=== PATIENT | female | born 1950 | race Caucasian/White ===

== ENCOUNTER → 2018-05-08 | Day surgery (SDC) | payer MEDICARE, OTHER ==
[~2018-05-08] MED LIST: Lactated Ringers 1,000 ML IV SCH; Propofol 200 MG/20 ML SDV IV ONE
[2018-05-08 08:49] VITALS: BP 131/60
--- NOTE | 2018-05-08 13:36 | OR ---
DATE OF OPERATION: 05/08/2018 PREOPERATIVE DIAGNOSIS: POSITIVE COLOGUARD. POSTOPERATIVE DIAGNOSIS: POSITIVE COLOGUARD. SURGEON: John Knox MD PROCEDURE: FULL-LENGTH COLONOSCOPY WITH FORCEPS POLYP REMOVAL X6. ANESTHESIA: CAMPAIGN SPECIALIST. COMPLICATIONS: None. SPECIMEN: Six small sessile polyps on left-sided colon, see report. FINDINGS: 1. Full-length colonoscopy. 2. Mild sigmoid diverticulosis. 3. Polyps x6. RECOMMENDATIONS: Followup colonoscopy in 3 years. INDICATIONS: The patient had a prior colonoscopy 5 years ago. She had a positive Cologuard with her primary physician, Dr. Sherman Stearns. He sent her for diagnostic colonoscopy. DESCRIPTION OF PROCEDURE: The patient was prepped and draped, placed in the left lateral decubitus position. A lubricated Olympus colonoscope was inserted and with ease advanced to the cecum. Direct visualization of the ileocecal valve and appendiceal orifice was accomplished. The bowel prep was adequate. Upon withdrawal of the scope, the cecum, ascending and transverse colon were unremarkable. Just past the splenic flexure in the proximal descending colon, the patient had a flat sessile polyp less than 0.5 cm removed in its entirety with 2 cold forceps biopsies. The rest of the descending colon was unremarkable. In the sigmoid colon, the patient had scattered diverticular disease into the rectosigmoid junction, very mild in severity, without any inflammatory changes. In the distal sigmoid through the proximal rectal vault, the patient had 5 small sessile polyps, all likely hyperplastic, all removed with cold forceps with 1 or 2 biopsies in their entirety without any complication or bleeding. Two were present in the distal sigmoid, 2 in the rectosigmoid junction, and 1 in the proximal rectal vault. Retroflexion of the scope in the rectum showed some perianal skin tags, otherwise unremarkable. Air was then suctioned, scope removed without complication. SHIRAZ/GIULIANA /[id number]
== END ==
LOC: CC.SDS 06:29
PROVIDERS: ATTEND General Practice
DX: K57.31 Diverticulosis of large intestine without perforation or abscess with bleeding (principal); D12.4 Benign neoplasm of descending colon; D12.5 Benign neoplasm of sigmoid colon; K63.5 Polyp of colon; D12.8 Benign neoplasm of rectum; I10 Essential (primary) hypertension; E11.40 Type 2 diabetes mellitus with diabetic neuropathy, unspecified; E03.9 Hypothyroidism, unspecified; E78.00 Pure hypercholesterolemia, unspecified; G43.909 Migraine, unspecified, not intractable, without status migrainosus; J45.909 Unspecified asthma, uncomplicated; M19.90 Unspecified osteoarthritis, unspecified site; Z88.8 Allergy status to other drugs, medicaments and biological substances; Z88.1 Allergy status to other antibiotic agents; Z79.82 Long term (current) use of aspirin; Z79.4 Long term (current) use of insulin; Z79.1 Long term (current) use of non-steroidal anti-inflammatories (NSAID); Z79.899 Other long term (current) drug therapy
CPT/HCPCS: 82962; J2704; J7120

== ENCOUNTER 2020-08-27 13:52 | Emergency (ER) | payer MEDICARE, OTHER ==
[2020-08-27 13:55] VITALS: BP 170/77; PULSE 68
[2020-08-27] MEDS ORDERED: Acetaminophen/oxyCODONE 325-5 MG Tab ONE (14:39)
--- NOTE | 2020-08-27 14:42 | EDM.PDOC ---
ED HPI GENERAL MEDICAL PROBLEM - General Chief Complaint: Upper Extremity Injury/Pain Stated Complaint: R arm pain Time Seen by Provider: 08/27/20 14:11 Source of Information: Reports: Patient History Limitations: Reports: No Limitations - History of Present Illness INITIAL COMMENTS - FREE TEXT/NARRATIVE: This patient is a 70 year old female that presents to the ER. Patient reports she was trying to get into the camper, had the railing with her left hand holding on. She reports her left hand slipped and she fell back to right side landing on her right shoulder. Patient reports right upper arm pain. Patient denies hitting her head, loc, n, v, vision changes, neck pain, back pain, chest pain, shortness of breath, abd pain, urinary/bowel incontinence. Onset: Today Onset Date: 08/27/20 Onset Time: 13:30 Location: Reports: Upper Extremity, Right Quality: Reports: Sharp Severity: Moderate Improves with: Reports: Immobilization Worsens with: Reports: Movement Associated Symptoms: Reports: No Other Symptoms Right Upper Arm Pain Score (Numeric/FACES): 5 - Related Data Allergies Allergy/AdvReac Type Severity Reaction Status Date / Time Cephalosporins Allergy Rash Verified 08/27/20 13:56 formaldehyde Allergy Other Verified 08/27/20 13:56 propranolol HCl Allergy Headache Verified 08/27/20 13:56 [From Inderal LA] Home Meds: Home Meds Acetaminophen [Tylenol Extra Strength] 1,000 mg PO ASDIRECTED PRN 12/27/13 [History] Albuterol [Ventolin HFA] 2 puff INH BID PRN 12/27/13 [History] Aspirin [Halfprin] 81 mg PO BEDTIME 12/27/13 [History] Atenolol/Chlorthalidone [Atenolol-Chlorthalidone 50-25] 1 tab PO BEDTIME 12/27/13 [History] Cetirizine [ZyrTEC] 10 mg PO BEDTIME PRN 12/27/13 [History] DULoxetine HCl [Cymbalta] 30 mg PO BEDTIME 12/27/13 [History] Magnesium Oxide [Magnesium] 500 mg PO BID 12/27/13 [History] Cyclobenzaprine [Flexeril] 10 mg PO TID PRN 05/06/18 [History] EPINEPHrine [Epipen] 0.3 mg IM ASDIRECTED 05/06/18 [History] Insulin Glarg,Human.Rec.Analog [Lantus Solostar] 16 units SQ BEDTIME 05/06/18 [History] Levothyroxine [Synthroid] 50 mcg PO DAILY 05/06/18 [History] Folic Acid 1 mg PO DAILY 05/08/18 [History] Potassium Chloride [Klor-Con 10] 20 meq PO DAILY 05/08/18 [History] Rosuvastatin Calcium 5 mg PO DAILY 05/08/18 [History] Past Medical History Cardiovascular History: Reports: High Cholesterol, Hypertension Musculoskeletal History: Reports: Fibromyalgia Endocrine/Metabolic History: Reports: Diabetes, Type II, Hypothyroidism - Infectious Disease History Infectious Disease History: Reports: Chicken Pox - Past Surgical History GI Surgical History: Reports: Cholecystectomy Female Surgical History: Reports: Section Endocrine Surgical History: Reports: Other (See Below) Other Endocrine Surgeries/Procedures: 1/2 thyroid removed Neurological Surgical History: Reports: Other (See Below) Other Neurological Surgeries/Procedures: cyst removed from spine Dermatological Surgical History: Reports: Other (See Below) Social & Family History - Tobacco Use Tobacco Use Status *Q: Current Every Day Tobacco User Years of Tobacco use: 20 Packs/Tins Daily: 0.5 - Caffeine Use Caffeine Use: Reports: Coffee, Soda - Recreational Drug Use Recreational Drug Use: No Review of Systems - Review of Systems Review Of Systems: See Below Constitutional: Reports: No Symptoms Eyes: Reports: No Symptoms Ears: Reports: No Symptoms Nose: Reports: No Symptoms Mouth/Throat: Reports: No Symptoms Respiratory: Reports: No Symptoms Cardiovascular: Reports: No Symptoms GI/Abdominal: Reports: No Symptoms Genitourinary: Reports: No Symptoms Musculoskeletal: Reports: Arm Pain (right upper arm pain) Skin: Reports: Wound (small arbasion from picking sore right forearm) Neurological: Reports: No Symptoms Psychiatric: Reports: No Symptoms ED EXAM, GENERAL - Physical Exam Exam: See Below Exam Limited By: No Limitations General Appearance: Alert, WD/WN, No Apparent Distress, Obese Eye Exam: Bilateral Eye: EOMI, Normal Inspection, PERRL Ears: Normal External Exam, Normal Canal, Hearing Grossly Normal, Normal TMs Ear Exam: Bilateral Ear: Auricle Normal, Canal Normal, TM normal Nose: Normal Inspection, Normal Mucosa, No Blood Throat/Mouth: Normal Inspection, Normal Lips, Normal Teeth, Normal Gums, Normal Oropharynx, Normal Voice, No Airway Compromise Head: Atraumatic, Normocephalic Neck: Normal Inspection, Supple, Non-Tender, Full Range of Motion Respiratory/Chest: No Respiratory Distress, Lungs Clear, Normal Breath Sounds, No Accessory Muscle Use, Chest Non-Tender Cardiovascular: Normal Peripheral Pulses, Regular Rate, Rhythm, No Edema, No Gallop, No JVD, No Murmur, No Rub Peripheral Pulses: 2+: Radial (L), Radial (R), Posterior Tibial (L), Posterior Tibial (R) GI/Abdominal: Soft, Non-Tender (Female) Exam: Deferred Rectal (Female) Exam: Deferred Back Exam: Normal Inspection, Full Range of Motion. No: CVA Tenderness (L), CVA Tenderness (R), Decreased Range of Motion, Muscle Spasm, Paraspinal Tenderness, Vertebral Tenderness Extremities: No Pedal Edema, Normal Capillary Refill, Arm Pain (Right upper arm pain, tendernes. ROM decreased with patient in arm sling position. Pulses +2, cap refill < 2 sec, sensory intact. Neurovascular intact. ) Neurological: Alert, Oriented, Normal Cognition, Normal Gait, No Motor/Sensory Deficits Psychiatric: Normal Affect, Normal Mood Skin Exam: Warm, Dry, Normal Color, Rash (BLE chronic, sees dermatology upcoming), Wound/Incision (right forearm picking skin avulsion. left anterior arias picking skin avulsion from rash. ) ED TRAUMA EXTREMITY PROCEDURES - Splinting Right Upper Extremity Splint Site: right arm Pre-Procedure NV Status: Normal Post-Procedure NV Status: Normal Splint Material: Sling Splint Design: Sling Applied & Form Fitted By: Nurse Provider Post-Splint Application NV Check: NV Status Normal, Good Position Complications: No Course - Vital Signs Last Recorded V/S: Last Vital Signs Temp 98 F 08/27/20 13:53 Pulse 68 08/27/20 13:53 Resp 18 08/27/20 13:53 BP 170/77 H 08/27/20 13:53 Pulse Ox 98 08/27/20 13:53 - Orders/Labs/Meds Orders: Active Orders 24 hr Category Date Time Status Vaccines to be Administered [RC] PER UNIT ROUTINE Care 08/27/20 14:42 Ordered Humerus Rt [CR] Stat Exams 08/27/20 14:19 Taken Shoulder wo Cont Rt [CT] Stat Exams 08/27/20 14:56 Ordered Meds: Medications Discontinued Medications Generic Name Dose Route Start Last Admin Trade Name Freq PRN Reason Stop Dose Admin Diphtheria/Tetanus/Acell Pertussis 0.5 ml 08/27/20 14:42 08/27/20 14:46 Diphtheria,Pertussis(Acell),Tetanus Vaccine 0.5 Ml Syringe IM 08/27/20 14:43 0.5 ml .ONCE ONE Administration Morphine Sulfate 4 mg 08/27/20 14:57 08/27/20 15:01 Morphine 10 Mg/Ml Sdv IM 08/27/20 14:58 4 mg ONETIME ONE Administration Ondansetron HCl 4 mg 08/27/20 14:57 08/27/20 15:01 Ondansetron 4 Mg Tab.Dis PO 08/27/20 14:58 4 mg ONETIME ONE Administration Oxycodone/Acetaminophen 3 packet 08/27/20 14:58 08/27/20 15:06 Take Home: Acetaminophen/Oxycodone 325-5 Mg, 2 Tab Pack PO 08/27/20 14:59 3 packet ONETIME ONE Administration - Radiology Interpretation Free Text/Narrative:: Xray Right Humerus: Displaced humeral head fracture - Re-Assessments/Exams Free Text/Narrative Re-Assessment/Exam: 08/27/20 14:12: Patient was asked if she wanted pain medication, but she has declined. She is told to let me or nurse know if she changes her mind. 08/27/20 14:40: I called and spoke to Dr. Cleveland orthopedic [facility] about this patient. He request to get a CT right shoulder. Arm sling, discharge. He will have his clinic call patient tomorrow so he can see her either Friday or Friday and disc uss surgical options. Will discharge patient prior to CT results. The patient has now requested pain medication. Will medicate. Departure - Departure Time of Disposition: 15:03 Disposition: Home, Self-Care 01 Condition: Fair Clinical Impression: Fracture of humeral head, right, closed Qualifiers: Encounter type: initial encounter Qualified Code(s): S42.291A - Other displaced fracture of upper end of right humerus, initial encounter for closed fracture - Discharge Information *PRESCRIPTION DRUG MONITORING PROGRAM REVIEWED*: No (monitoring program is down this weekend per email sent Friday) *COPY OF PRESCRIPTION DRUG MONITORING REPORT IN PATIENT LUCIA: No Instructions: Humerus Fracture Treated With Immobilization Referrals: Sherman Stearns MD [Primary Care Provider] - Forms: ED Department Discharge Additional Instructions: Followup with Dr. Cleveland Orthopedic Surgeon at [facility]: They will call you tomorrow for appointment: If you do not hear from them, please call them at [phone]. He wants to see you either tomorrow for Friday. [facility] has your xray and ct, their radiologist reads all our images Rest Ice Elevate Arm Sling Motrin for pain as needed Percocet 5/325mg 1-2 pills every 4-6 hours as needed for pain #24 no refill, #6 take home: Please take with food Followup with your primary care provider as needed or surgical clearance if needed Sepsis Event Note (ED) - Evaluation Sepsis Screening Result: No Definite Risk - Focused Exam Vital Signs: Vital Signs Temp Pulse Resp BP Pulse Ox 08/27/20 13:53 98 F 68 18 170/77 H 98 - My Orders Last 24 Hours: My Active Orders 08/27/20 14:19 Humerus Rt [CR] Stat 08/27/20 14:42 Vaccines to be Administered [RC] PER UNIT ROUTINE 08/27/20 14:56 Shoulder wo Cont Rt [CT] Stat - Assessment/Plan Last 24 Hours: My Active Orders 08/27/20 14:19 Humerus Rt [CR] Stat 08/27/20 14:42 Vaccines to be Administered [RC] PER UNIT ROUTINE 08/27/20 14:56 Shoulder wo Cont Rt [CT] Stat Plan: PLEASE SEE RN NOTE FOR PFSH
[2020-08-27] MEDS: Diphtheria,Pertussis(Acell),Tetanus Vaccine 0.5 ML Syringe IM ONE (14:46)
[2020-08-27] MEDS: Morphine 10 MG/ML SDV IM ONE (15:01)
[2020-08-27] MEDS: Ondansetron 4 MG Tab.DIS PO ONE (15:01)
[2020-08-27] MEDS: Take Home: Acetaminophen/oxyCODONE 325-5 MG, 2 Tab Pack PO ONE (15:06)
== END 2020-08-27 15:23 | disposition home or self-care (01) ==
LOC: CC.ED 13:52
DX: S42.291A Other displaced fracture of upper end of right humerus, initial encounter for closed fracture (principal); Z72.0 Tobacco use; E78.00 Pure hypercholesterolemia, unspecified; I10 Essential (primary) hypertension; E11.9 Type 2 diabetes mellitus without complications; E03.9 Hypothyroidism, unspecified; Z23 Encounter for immunization; W18.39XA Other fall on same level, initial encounter
CPT/HCPCS: 73060-RT; 73200-RT; 90471; 90715; 96372; 99283-25; A9270-GY; J2270

== ENCOUNTER 2020-09-02 08:45 | Emergency (ER) | payer MEDICARE, OTHER ==
[2020-09-02 09:15] VITALS: BP 123/62; PULSE 69
[2020-09-02 09:32] LABS: CHLORIDE,CL 99 mEq/L (98-106); SODIUM,NA 133 mEq/L (136-145)
[2020-09-02] MEDS ORDERED: Sodium Chloride 0.9% 1,000 ML IV SCH (10:00)
--- NOTE | 2020-09-02 11:14 | EDM.PDOC ---
ED HPI GENERAL MEDICAL PROBLEM - General Chief Complaint: General Stated Complaint: s/p R humerus fx-BLE edema, blisters to area Time Seen by Provider: 09/02/20 09:20 Source of Information: Reports: Patient, Family History Limitations: Reports: No Limitations - History of Present Illness INITIAL COMMENTS - FREE TEXT/NARRATIVE: Roxane is a 70 year old female who presents to ER with increased edema in her legs and arm. Has had blisters form on her right arm and daughter questions if related to an allergy to her immobilizer. She has "sensitive skin and a lot of allergies and has had blisters forming where it could rub on the brace". She has an ongoing rash all over that she sees dermatology for and feel it is related to polymyalgia rheumatica". Had a humerus fracture on the , had surgery on this by Dr. Cleveland on the . Admits that has not been as active since surgery. Daughter kristal has been in the recliner but last night they did elevate her legs more and that seemed to help some with the edema. Has been trying to drink more fluids the last couple days. Does believe she didn't get enough around the surgical date. Has been only taking tylenol arthritis for the pain. Has not had a BM for some time. She took dulcolax twice yesterday and feels "crampy so think it may be starting to work". Is currently on Atenolol/HCTZ but does not take any other diuretics. On a baby aspirin daily, no other DVT prophylaxis. Daughter relates have been trying to encourage her to be more active, "gets up mostly to smoke". Is planning on quitting when this pack runs out. Onset: Gradual Duration: Day(s): Location: Reports: Upper Extremity, Right, Lower Extremity, Left, Lower Extremity, Right Quality: Reports: Ache Severity: Moderate Improves with: Reports: Rest Worsens with: Reports: Movement Associated Symptoms: Reports: Malaise. 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 Right Arm Pain Score (Numeric/FACES): 8 - Related Data Allergies Allergy/AdvReac Type Severity Reaction Status Date / Time acetaminophen [From Lortab] Allergy Vomiting Verified 09/02/20 09:22 Cephalosporins Allergy Rash Verified 09/02/20 09:22 formaldehyde Allergy Other Verified 09/02/20 09:22 hydrocodone [From Lortab] Allergy Vomiting Verified 09/02/20 09:22 propranolol HCl Allergy Headache Verified 09/02/20 09:22 [From Inderal LA] Home Meds: Home Meds Albuterol [Ventolin HFA] 2 puff INH BID PRN 12/27/13 [History] Aspirin [Halfprin] 81 mg PO BEDTIME 12/27/13 [History] Atenolol/Chlorthalidone [Atenolol-Chlorthalidone 50-25] 1 tab PO BEDTIME 12/27/13 [History] Cetirizine [ZyrTEC] 10 mg PO BEDTIME PRN 12/27/13 [History] DULoxetine HCl [Cymbalta] 30 mg PO BEDTIME 12/27/13 [History] Magnesium Oxide [Magnesium] 500 mg PO BID 12/27/13 [History] Cyclobenzaprine [Flexeril] 10 mg PO TID PRN 05/06/18 [History] EPINEPHrine [Epipen] 0.3 mg IM ASDIRECTED 05/06/18 [History] Insulin Glarg,Human.Rec.Analog [Lantus Solostar] 22 units SQ BEDTIME 05/06/18 [History] Levothyroxine [Synthroid] 50 mcg PO DAILY 05/06/18 [History] Folic Acid 1 mg PO DAILY 05/08/18 [History] Potassium Chloride [Klor-Con 10] 20 meq PO DAILY 05/08/18 [History] Rosuvastatin Calcium 5 mg PO DAILY 05/08/18 [History] Acetaminophen [Tylenol Arthritis] 1,300 mg PO ASDIRECTED PRN 09/02/20 [History] Past Medical History Cardiovascular History: Reports: High Cholesterol, Hypertension Respiratory History: Reports: Asthma 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: Musculoskeletal History: Reports: Arthritis, Fibromyalgia Neurological History: Reports: Migraines Psychiatric History: Reports: Anxiety Endocrine/Metabolic History: Reports: Diabetes, Type II, Hypothyroidism Dermatologic History: Reports: Other (See Below) Other Dermatologic History: rash to BLE - Infectious Disease History Infectious Disease History: Reports: Chicken Pox, Measles, Mumps - Past Surgical History GI Surgical History: Reports: Cholecystectomy Female Surgical History: Reports: Section, Hysterectomy Endocrine Surgical History: Reports: Other (See Below) Other Endocrine Surgeries/Procedures: 1/2 thyroid removed Neurological Surgical History: Reports: Other (See Below) Other Neurological Surgeries/Procedures: cyst removed from spine Other Musculoskeletal Surgeries/Procedures:: R) humerus fx surgery 08/30/20 Dermatological Surgical History: Reports: Other (See Below) Social & Family History - Tobacco Use Tobacco Use Status *Q: Current Every Day Tobacco User Years of Tobacco use: 20 Packs/Tins Daily: 0.5 - Caffeine Use Caffeine Use: Reports: Coffee - Recreational Drug Use Recreational Drug Use: No ED ROS GENERAL - Review of Systems Review Of Systems: See Below Constitutional: Reports: Malaise, Fatigue. Denies: Chills, Weakness, Decreased Appetite HEENT: Denies: Ear Pain, Sinus Problem, Throat Pain, Vertigo Respiratory: Denies: Shortness of Breath, Cough Cardiovascular: Reports: Edema. Denies: Chest Pain, Lightheadedness Endocrine: Denies: Fatigue GI/Abdominal: Reports: Constipation. Denies: Abdominal Pain, Nausea, Vomiting : Reports: No Symptoms Musculoskeletal: Reports: Arm Pain, Leg Pain, Joint Pain Skin: Reports: Bruising, Other (blisters noted to right forearm) Neurological: Reports: No Symptoms ED EXAM, GENERAL - Physical Exam Exam: See Below Exam Limited By: No Limitations General Appearance: Alert, WD/WN, No Apparent Distress Ears: Normal External Exam, Normal TMs Nose: Normal Inspection, Normal Mucosa, No Blood Throat/Mouth: Normal Inspection, Normal Oropharynx Head: Normocephalic Neck: Normal Inspection, Supple, Non-Tender Respiratory/Chest: No Respiratory Distress, Lungs Clear, Normal Breath Sounds Cardiovascular: Regular Rate, Rhythm GI/Abdominal: Normal Bowel Sounds, Soft, Non-Tender Extremities: Pedal Edema (2+ RLE edema, 1+ LLE), Other (has scabs, sores, rash on lower extremities. Small blisters to right forearm. Significant bruising to right arm, chest/breasts. ) Neurological: Alert, Oriented Skin Exam: Ecchymosis Course - Vital Signs Last Recorded V/S: Last Vital Signs Temp 97.8 F 09/02/20 10:38 Pulse 69 09/02/20 10:38 Resp 18 09/02/20 10:38 BP 123/62 09/02/20 10:38 Pulse Ox 99 09/02/20 10:38 - Orders/Labs/Meds Orders: Active Orders 24 hr Category Date Time Status VL Duplex Lwr Ext Veins Ltd Lt [US] Routine Exams 09/02/20 Taken VL Duplex Lwr Ext Veins Ltd Rt [US] Routine Exams 09/02/20 Ordered Sodium Chloride 0.9% [Normal Saline] 1,000 ml Med 09/02/20 10:00 Active IV ASDIRECTED Medication Orders Sodium Chloride (Normal Saline) 1,000 mls @ 250 mls/hr IV ASDIRECTED KEARA Last Admin: 09/02/20 10:07 Dose: 250 mls/hr Documented by: CATHIE Labs: Laboratory Tests 09/02/20 09/02/20 09/02/20 Range/Units 09:12 09:12 09:12 WBC 18.9 H (4.0-11.0) 10^3/uL RBC 2.48 L (4.00-5.50) x10^6/uL Hgb 8.2 L (12.0-16.0) g/dL Hct 25.4 L (37.0-47.0) % MCV 102.4 H (83.0-97.0) fL MCH 33.1 H (27.0-32.0) pg MCHC 32.3 (32.0-36.0) g/dL RDW Coeff of Kayy 15.4 H (11.0-15.0) % Plt Count 142 L (150-400) 10^3/uL Immature Gran % (Auto) 0.6 (0.0-4.9) % Neut % (Auto) 80.2 H (41-71) % Lymph % (Auto) 12.4 L (24-44) % King % (Auto) 6.4 (0-10) % Eos % (Auto) 0.3 (0-6) % Baso % (Auto) 0.1 (0-1) % Neut # (Auto) 15.19 H (1.80-8.00) x10^3/uL Lymph # (Auto) 2.34 (0.60-5.00) 10^3/uL King # (Auto) 1.21 (0.00-1.50) 10^3/uL Eos # (Auto) 0.05 (0.00-1.50) 10^3/uL Baso # (Auto) 0.01 (0.00-0.50) 10^3/uL Immature Gran # (Auto) 0.11 (0.00-0.49) 10^3/uL D-Dimer, Quantitative 4.10 H (0.00-0.50) Sodium 133 L (136-145) mEq/L Potassium 4.2 (3.5-5.0) mEq/L Chloride 99 (98-106) mEq/L Carbon Dioxide 25 (21-32) mmol/L BUN 69 H D (7-18) mg/dL Creatinine 2.1 H (0.6-1.0) mg/dL Est Cr Clr Drug Dosing TNP Estimated GFR (MDRD) 23 L (>=60) mL/min Glucose 267 H D (75-99) mg/dL Calcium 8.5 (8.4-10.1) mg/dL NT-Pro-B Natriuret Pep 2590 H (0-1000) pg/mL Meds: Medications Generic Name Dose Route Start Last Admin Trade Name Marvin PRN Reason Stop Dose Admin Sodium Chloride 1,000 mls @ 250 mls/hr 09/02/20 10:00 09/02/20 10:07 Normal Saline IV 250 mls/hr ASDIRECTED [facility] Administration - Re-Assessments/Exams Free Text/Narrative Re-Assessment/Exam: 09/02/20 1000 Labs note elevated d-dimer at 4.1. Creatinine 2.1, BUN. ProBNP 2590. No recent labs here for comparison. Will obtain ultrasound of lower extremities. Start IV fluids over the next 4 hours and start Lasix after for fluid overload. 09/02/20 12:22 Placed stockinette on right arm, hopefully prevent further irritation from the immobilizer. Discussed follow up with patient with Dr. Stearns early next week for recheck labs. Will finish IV fluids. Start Lasix daily for 3 days and then see Dr. Stearns as is also on Atenolol/HCTZ. Elevate legs. Increase activity as able. Departure - Departure Time of Disposition: 12:24 Disposition: Home, Self-Care 01 Condition: Good, Fair Clinical Impression: Edema, Dehydration, Renal insufficiency, CHF (congestive heart failure) - Discharge Information *PRESCRIPTION DRUG MONITORING PROGRAM REVIEWED*: No *COPY OF PRESCRIPTION DRUG MONITORING REPORT IN PATIENT LUCIA: No Instructions: Dehydration, Adult, [id number] Referrals: Sherman Steanrs MD [Primary Care Provider] - Forms: ED Department Discharge Additional Instructions: 1. Elevate legs 2. Push fluids 3. Lasix 40 mg daily for 3 days and then see Dr. Stearns for repeat labs and follow up. May need echocardiogram as well. 4. Call with any concerns Sepsis Event Note (ED) - Evaluation Sepsis Screening Result: No Definite Risk - Focused Exam Vital Signs: Vital Signs Temp Pulse Resp BP Pulse Ox 09/02/20 10:38 97.8 F 69 18 123/62 99 09/02/20 09:03 97.8 F 69 18 123/62 99 - My Orders Last 24 Hours: My Active Orders 09/02/20 VL Duplex Lwr Ext Veins Ltd Lt [US] Routine VL Duplex Lwr Ext Veins Ltd Rt [US] Routine 09/02/20 10:00 Sodium Chloride 0.9% [Normal Saline] 1,000 ml IV ASDIRECTED - Assessment/Plan Last 24 Hours: My Active Orders 09/02/20 VL Duplex Lwr Ext Veins Ltd Lt [US] Routine VL Duplex Lwr Ext Veins Ltd Rt [US] Routine 09/02/20 10:00 Sodium Chloride 0.9% [Normal Saline] 1,000 ml IV ASDIRECTED
[2020-09-02] MEDS ORDERED: Furosemide 40 MG Tab ONE (12:45)
[2020-09-02] MEDS ORDERED: Furosemide 40 MG Tab PO SCH (12:45)
== END 2020-09-02 14:45 | disposition home or self-care (01) ==
LOC: CC.ED 08:45 → SUPCPDRO 08:45 → CC.ED 14:45
DX: R60.0 Localized edema (principal); I13.0 Hypertensive heart and chronic kidney disease with heart failure and stage 1 through stage 4 chronic kidney disease, or unspecified chronic kidney disease; E11.22 Type 2 diabetes mellitus with diabetic chronic kidney disease; N18.9 Chronic kidney disease, unspecified; I50.9 Heart failure, unspecified; E86.0 Dehydration; E78.00 Pure hypercholesterolemia, unspecified; Z88.5 Allergy status to narcotic agent; Z88.6 Allergy status to analgesic agent; Z88.1 Allergy status to other antibiotic agents; Z79.899 Other long term (current) drug therapy; Z79.82 Long term (current) use of aspirin; Z72.0 Tobacco use
CPT/HCPCS: 36415; 80048; 83880; 85025; 85379; 93971; 99284; A9270; J7030

== ENCOUNTER 2022-06-30 13:54 | Emergency (ER) | payer MEDICARE, OTHER ==
[2022-06-30 14:34] LABS: CHLORIDE,CL 110 mEq/L (98-106); SODIUM,NA 143 mEq/L (136-145)
[2022-06-30 14:35] LABS: ESTIMATED GFR 34 mL/min (>=60)
[2022-06-30] MEDS ORDERED: Ondansetron 4 MG/2 ML SDV IVPUSH STA (15:20)
[2022-06-30] MEDS ORDERED: Morphine 2 MG/ML SYRINGE IVPUSH PRN (15:23)
[2022-06-30] MEDS ORDERED: Sodium Chloride 0.9% 500 ML IV SCH (15:30)
[2022-06-30] MEDS ORDERED: Piperacillin/Tazobactam 4.5 GM in Sodium Chloride 0.9% 100 ML IV ONE (16:06)
[2022-06-30 16:37] VITALS: BP 159/72; PULSE 84
== END 2022-06-30 17:20 ==
LOC: CC.ED 13:54
DX: K74.69 Other cirrhosis of liver (principal); E87.20 Acidosis, unspecified; R18.8 Other ascites; D72.829 Elevated white blood cell count, unspecified; E03.9 Hypothyroidism, unspecified; J45.909 Unspecified asthma, uncomplicated; E78.00 Pure hypercholesterolemia, unspecified; Z88.5 Allergy status to narcotic agent; E11.9 Type 2 diabetes mellitus without complications; I10 Essential (primary) hypertension; Z79.82 Long term (current) use of aspirin; Z88.8 Allergy status to other drugs, medicaments and biological substances; Z79.899 Other long term (current) drug therapy
CPT/HCPCS: 36415; 74176; 80053; 81003; 83605; 83690; 85025; 86140; 87040; 96361; 96365; 96375; 99284; 99285-25; J2270; J2405; J2543; J3490; J7040

== ENCOUNTER 2022-07-26 13:05 | Inpatient (IN) | payer MEDICARE, OTHER ==
[2022-07-26 13:36] LABS: BASOPHILS ABSOLUTE AUTO 0.03 10^3/uL (0.00-0.50); BASOPHILS PERCENT AUTO 0.3 % (0-1); EOSINOPHILS PERCENT AUTO 0.9 % (0-6); HEMATOCRIT 28.7 % (37.0-47.0); HEMOGLOBIN 9.1 g/dL (12.0-16.0); IMMATURE GRAN ABSOLUTE AUTO 0.02 10^3/uL (0.00-0.49); IMMATURE GRAN PERCENT AUTO 0.2 % (0.0-4.9); LYMPHOCYTES ABSOLUTE AUTO 1.09 10^3/uL (0.60-5.00); LYMPHOCYTES PERCENT AUTO 9.6 % (24-44); MEAN CORPUSCULAR HEMOGLOBIN 31.5 pg (27.0-32.0); MEAN CORPUSCULAR HGB CONC 31.7 g/dL (32.0-36.0); MEAN CORPUSCULAR VOLUME 99.3 fL (83.0-97.0); MONOCYTES ABSOLUTE AUTO 0.52 10^3/uL (0.00-1.50); MONOCYTES PERCENT AUTO 4.6 % (0-10); NEUTROPHILS ABSOLUTE AUTO 9.57 x10^3/uL (1.80-8.00); NEUTROPHILS PERCENT AUTO 84.4 % (41-71); PLATELET COUNT,PLT 147 10^3/uL (150-400); RED BLOOD CELL COUNT 2.89 x10^6/uL (4.00-5.50); WHITE BLOOD CELL COUNT,WBC 11.3 10^3/uL (4.0-11.0)
[2022-07-26 13:45] LABS: APPEARANCE,URINE CLEAR (CLEAR); BILIRUBIN,URINE NEGATIVE (NEGATIVE); COLOR,URINE YELLOW (YELLOW); GLUCOSE,URINE NEGATIVE (NEGATIVE); KETONES,URINE NEGATIVE (NEGATIVE); LEUKOCYTE ESTERASE,URINE NEGATIVE (NEGATIVE); NITRITE,URINE NEGATIVE (NEGATIVE); OCCULT BLOOD,URINE NEGATIVE (NEGATIVE); PROTEIN,URINE NEGATIVE (NEGATIVE); UROBILINOGEN,URINE 0.2 EU/dL (0.2-1.0)
[2022-07-26 13:48] LABS: ALBUMIN 2.7 g/dL (3.4-5.0); BILIRUBIN TOTAL 0.9 mg/dL (0.0-1.0); CALCIUM 9.1 mg/dL (8.4-10.1); EST CRCL DRUG DOSING (CG) 23.8 mL/min; MAGNESIUM 1.8 mg/dL (1.8-2.4); PROTEIN TOTAL,TP 6.9 g/dL (6.4-8.2)
[2022-07-26] MEDS ORDERED: Albuterol 90 MCG/6.7 GM Inhaler INH PRN (15:00)
[2022-07-26] MEDS ORDERED: Non-Formulary Medication 1 Each (Epinephrine [Epipen] 0.3 MG/0.3 ML Pen) IM SCH (15:00)
[2022-07-26] MEDS ORDERED: Docusate Sodium 100 MG Cap PO PRN (15:06)
[2022-07-26] MEDS ORDERED: Morphine 2 MG/ML SYRINGE IVPUSH PRN (15:06)
[2022-07-26] MEDS ORDERED: Ondansetron 4 MG/2 ML SDV IV PRN (15:06)
[2022-07-26] MEDS ORDERED: Sodium Chloride 0.9% 1,000 ML IV STA (15:06)
[2022-07-26] MEDS ORDERED: Polyethylene Glycol 3350 Powder 17 GM Packet PO PRN (15:06)
[2022-07-26] MEDS ORDERED: Glucagon,Human Recombinant 1 MG Vial IM PRN (17:15)
[2022-07-26] MEDS ORDERED: 50% Dextrose in Water 50 ML Syringe IVPUSH PRN (17:15)
[2022-07-26] MEDS ORDERED: Insulin Lispro 100 Units/ML 3 ML Vial SUBCUT SCH (17:30)
[2022-07-26] MEDS: Sodium Bicarbonate 650 MG Tab PO SCH (19:56)
[2022-07-26] MEDS: DULoxetine 30 MG Cap PO SCH (19:56)
[2022-07-26] MEDS ORDERED: Non-Formulary Medication 1 Each (Insulin Glarg,Human.Rec.Analog 100 UNITS/ML Pen) SQ SCH (20:00)
[2022-07-26] MEDS ORDERED: Non-Formulary Medication 1 Each (Magnesium Oxide [Magnesium] 500 MG Capsule) PO SCH (20:00)
[2022-07-26] MEDS ORDERED: METOCLOPRAMIDE HCL 5 MG PO SCH (20:00)
[2022-07-26] MEDS: Metoclopramide 10 MG Tab PO SCH (20:04)
[2022-07-26] MEDS: Insulin Glarg,Human.Rec.Analog 100 Unit/ML SUBCUT SCH (20:15)
[2022-07-26] MEDS: Insulin Lispro 100 Units/ML 3 ML Vial SUBCUT SCH (20:52)
[2022-07-27 07:25] LABS: BASOPHILS ABSOLUTE AUTO 0.03 10^3/uL (0.00-0.50); BASOPHILS PERCENT AUTO 0.3 % (0-1); EOSINOPHILS ABSOLUTE AUTO 0.12 10^3/uL (0.00-1.50); EOSINOPHILS PERCENT AUTO 1.2 % (0-6); HEMATOCRIT 26.3 % (37.0-47.0); HEMOGLOBIN 8.4 g/dL (12.0-16.0); IMMATURE GRAN ABSOLUTE AUTO 0.01 10^3/uL (0.00-0.49); IMMATURE GRAN PERCENT AUTO 0.1 % (0.0-4.9); LYMPHOCYTES ABSOLUTE AUTO 1.99 10^3/uL (0.60-5.00); LYMPHOCYTES PERCENT AUTO 19.7 % (24-44); MEAN CORPUSCULAR HEMOGLOBIN 31.7 pg (27.0-32.0); MEAN CORPUSCULAR HGB CONC 31.9 g/dL (32.0-36.0); MEAN CORPUSCULAR VOLUME 99.2 fL (83.0-97.0); MONOCYTES ABSOLUTE AUTO 0.71 10^3/uL (0.00-1.50); NEUTROPHILS ABSOLUTE AUTO 7.25 x10^3/uL (1.80-8.00); NEUTROPHILS PERCENT AUTO 71.7 % (41-71); PLATELET COUNT,PLT 128 10^3/uL (150-400); RED BLOOD CELL COUNT 2.65 x10^6/uL (4.00-5.50); WHITE BLOOD CELL COUNT,WBC 10.1 10^3/uL (4.0-11.0)
[2022-07-27] MEDS: Sodium Bicarbonate 650 MG Tab PO SCH ×2 (07:31→19:44)
[2022-07-27] MEDS: Atenolol 50 MG Tab PO SCH (07:31)
[2022-07-27] MEDS: Levothyroxine 50 MCG Tab PO SCH (07:32)
[2022-07-27] MEDS: Torsemide 20 MG Tab PO SCH (07:32)
[2022-07-27] MEDS: Metoclopramide 10 MG Tab PO SCH ×3 (07:32→19:44)
[2022-07-27] MEDS: Potassium Chloride 10 MEQ Tab.ER PO SCH (07:32)
[2022-07-27] MEDS: Folic Acid 1 MG Tab PO SCH (07:32)
[2022-07-27] MEDS: Simvastatin 20 MG Tab PO SCH (07:32)
[2022-07-27] MEDS: Non-Formulary Medication 1 Each (Biotin [Biotin] 1 MG Tablet) PO SCH (07:35)
[2022-07-27] MEDS: Insulin Lispro 100 Units/ML 3 ML Vial SUBCUT SCH ×4 (07:36→20:57)
[2022-07-27] MEDS ORDERED: predniSONE 5 MG Tab PO SCH (08:00)
[2022-07-27 08:07] LABS: ALBUMIN 2.3 g/dL (3.4-5.0); BILIRUBIN TOTAL 0.6 mg/dL (0.0-1.0); CALCIUM 8.8 mg/dL (8.4-10.1); CREATININE 1.6 mg/dL (0.6-1.0); EST CRCL DRUG DOSING (CG) 29.75 mL/min; MAGNESIUM 2.1 mg/dL (1.8-2.4); POTASSIUM,K 3.7 mEq/L (3.5-5.0); PROTEIN TOTAL,TP 6.4 g/dL (6.4-8.2)
[2022-07-27] MEDS ORDERED: Furosemide 40 MG/4 ML VIAL IVPUSH ONE ×3 (11:22→16:00)
[2022-07-27] MEDS ORDERED: Albumin 25% 12.5 GM/50 ML Bag IV SCH (11:30)
[2022-07-27] MEDS ORDERED: Albumin 25% 12.5 GM/50 ML Bag IV ONE (12:30)
[2022-07-27] MEDS: DULoxetine 30 MG Cap PO SCH (19:44)
[2022-07-27] MEDS: Insulin Glarg,Human.Rec.Analog 100 Unit/ML SUBCUT SCH (19:47)
[2022-07-28 07:25] LABS: BASOPHILS ABSOLUTE AUTO 0.04 10^3/uL (0.00-0.50); BASOPHILS PERCENT AUTO 0.5 % (0-1); EOSINOPHILS ABSOLUTE AUTO 0.19 10^3/uL (0.00-1.50); EOSINOPHILS PERCENT AUTO 2.3 % (0-6); HEMATOCRIT 25.1 % (37.0-47.0); HEMOGLOBIN 8.1 g/dL (12.0-16.0); IMMATURE GRAN ABSOLUTE AUTO 0.02 10^3/uL (0.00-0.49); IMMATURE GRAN PERCENT AUTO 0.2 % (0.0-4.9); LYMPHOCYTES ABSOLUTE AUTO 1.54 10^3/uL (0.60-5.00); MEAN CORPUSCULAR HGB CONC 32.3 g/dL (32.0-36.0); MEAN CORPUSCULAR VOLUME 99.2 fL (83.0-97.0); MONOCYTES ABSOLUTE AUTO 0.64 10^3/uL (0.00-1.50); MONOCYTES PERCENT AUTO 7.9 % (0-10); NEUTROPHILS ABSOLUTE AUTO 5.66 x10^3/uL (1.80-8.00); NEUTROPHILS PERCENT AUTO 70.1 % (41-71); PLATELET COUNT,PLT 105 10^3/uL (150-400); RED BLOOD CELL COUNT 2.53 x10^6/uL (4.00-5.50); WHITE BLOOD CELL COUNT,WBC 8.1 10^3/uL (4.0-11.0)
[2022-07-28] MEDS: Metoclopramide 10 MG Tab PO SCH ×3 (07:28→19:51)
[2022-07-28] MEDS: Non-Formulary Medication 1 Each (Biotin [Biotin] 1 MG Tablet) PO SCH (07:28)
[2022-07-28] MEDS: Torsemide 20 MG Tab PO SCH (07:29)
[2022-07-28] MEDS: Potassium Chloride 10 MEQ Tab.ER PO SCH (07:29)
[2022-07-28] MEDS: Sodium Bicarbonate 650 MG Tab PO SCH ×2 (07:29→19:51)
[2022-07-28] MEDS: Simvastatin 20 MG Tab PO SCH (07:29)
[2022-07-28] MEDS: Folic Acid 1 MG Tab PO SCH (07:29)
[2022-07-28] MEDS: Atenolol 50 MG Tab PO SCH (07:29)
[2022-07-28] MEDS: Levothyroxine 50 MCG Tab PO SCH (07:29)
[2022-07-28] MEDS: predniSONE 5 MG Tab PO SCH (07:29)
[2022-07-28] MEDS: Insulin Lispro 100 Units/ML 3 ML Vial SUBCUT SCH ×4 (07:30→20:46)
[2022-07-28 07:50] LABS: ALBUMIN 2.6 g/dL (3.4-5.0); BILIRUBIN TOTAL 0.7 mg/dL (0.0-1.0); CALCIUM 8.6 mg/dL (8.4-10.1); CREATININE 1.6 mg/dL (0.6-1.0); EST CRCL DRUG DOSING (CG) 29.75 mL/min; MAGNESIUM 1.9 mg/dL (1.8-2.4); PROTEIN TOTAL,TP 6.3 g/dL (6.4-8.2)
[2022-07-28] MEDS: DULoxetine 30 MG Cap PO SCH (19:51)
[2022-07-28] MEDS: Insulin Glarg,Human.Rec.Analog 100 Unit/ML SUBCUT SCH (19:54)
[2022-07-29] MEDS: Levothyroxine 50 MCG Tab PO SCH (07:39)
[2022-07-29] MEDS: Folic Acid 1 MG Tab PO SCH (07:39)
[2022-07-29] MEDS: predniSONE 5 MG Tab PO SCH (07:39)
[2022-07-29] MEDS: Potassium Chloride 10 MEQ Tab.ER PO SCH (07:39)
[2022-07-29] MEDS: Simvastatin 20 MG Tab PO SCH (07:40)
[2022-07-29] MEDS: Sodium Bicarbonate 650 MG Tab PO SCH (07:40)
[2022-07-29] MEDS: Metoclopramide 10 MG Tab PO SCH (07:40)
[2022-07-29] MEDS: Atenolol 50 MG Tab PO SCH (07:40)
[2022-07-29] MEDS: Torsemide 20 MG Tab PO SCH (07:40)
[2022-07-29] MEDS: Non-Formulary Medication 1 Each (Biotin [Biotin] 1 MG Tablet) PO SCH (07:54)
[2022-07-29] MEDS: Insulin Lispro 100 Units/ML 3 ML Vial SUBCUT SCH ×2 (07:55→12:01)
[2022-07-29] MEDS ORDERED: Albumin 25% 12.5 GM/50 ML Bag IV ONE (10:00)
[2022-07-29] MEDS ORDERED: Albumin 25% 25 GM in Premix Bag 1 BAG IV ONE (10:00)
[2022-07-29 12:24] VITALS: BP 111/55; PULSE 70
== END 2022-07-29 13:21 | disposition home or self-care (01) | DRG 433 ==
LOC: CC.ED 13:05 → UNDOADMIN 14:17 → CC.MS 14:17
PROVIDERS: ADMIT Nurse Practitioner; ATTEND Nurse Practitioner
PROC: 0W9G3ZZ Drainage of Peritoneal Cavity, Percutaneous Approach (ICD-10-PCS; principal; 2022-07-29)
DX: K74.60 Unspecified cirrhosis of liver (principal); N17.9 Acute kidney failure, unspecified; R18.8 Other ascites; D69.6 Thrombocytopenia, unspecified; I12.9 Hypertensive chronic kidney disease with stage 1 through stage 4 chronic kidney disease, or unspecified chronic kidney disease; E11.22 Type 2 diabetes mellitus with diabetic chronic kidney disease; N18.30 Chronic kidney disease, stage 3 unspecified; M19.90 Unspecified osteoarthritis, unspecified site; E03.9 Hypothyroidism, unspecified; J45.909 Unspecified asthma, uncomplicated; G43.909 Migraine, unspecified, not intractable, without status migrainosus; M79.7 Fibromyalgia; E78.00 Pure hypercholesterolemia, unspecified; Z90.49 Acquired absence of other specified parts of digestive tract; Z88.8 Allergy status to other drugs, medicaments and biological substances; Z88.5 Allergy status to narcotic agent; Z90.710 Acquired absence of both cervix and uterus; Z98.890 Other specified postprocedural states; Z79.899 Other long term (current) drug therapy
CPT/HCPCS: 36415; 49083; 80053; 81003; 82947; 83690; 83735; 85025; 85730; 87070; 96360; 96361; 99223; 99232; 99233; 99238; 99284-25; A9270-GY; J1815-GY; J1940; J2270; J7030; J7512; P9047

== ENCOUNTER 2022-10-07 14:30 | Emergency (ER) | payer MEDICARE, OTHER ==
[2022-10-07 14:47] VITALS: BP 113/57; PULSE 64
[2022-10-07 15:32] LABS: BASOPHILS ABSOLUTE AUTO 0.08 10^3/uL (0.00-0.50); BASOPHILS PERCENT AUTO 1.1 % (0-1); EOSINOPHILS ABSOLUTE AUTO 0.49 10^3/uL (0.00-1.50); HEMATOCRIT 27.1 % (37.0-47.0); HEMOGLOBIN 8.6 g/dL (12.0-16.0); IMMATURE GRAN ABSOLUTE AUTO 0.01 10^3/uL (0.00-0.49); IMMATURE GRAN PERCENT AUTO 0.1 % (0.0-4.9); LYMPHOCYTES ABSOLUTE AUTO 1.05 10^3/uL (0.60-5.00); LYMPHOCYTES PERCENT AUTO 14.9 % (24-44); MEAN CORPUSCULAR HEMOGLOBIN 31.5 pg (27.0-32.0); MEAN CORPUSCULAR HGB CONC 31.7 g/dL (32.0-36.0); MEAN CORPUSCULAR VOLUME 99.3 fL (83.0-97.0); MONOCYTES ABSOLUTE AUTO 0.72 10^3/uL (0.00-1.50); MONOCYTES PERCENT AUTO 10.2 % (0-10); NEUTROPHILS ABSOLUTE AUTO 4.68 x10^3/uL (1.80-8.00); NEUTROPHILS PERCENT AUTO 66.7 % (41-71); PLATELET COUNT,PLT 127 10^3/uL (150-400); RED BLOOD CELL COUNT 2.73 x10^6/uL (4.00-5.50)
[2022-10-07 15:43] LABS: BILIRUBIN TOTAL 0.7 mg/dL (0.0-1.0); C-REACTIVE PROTEIN 1.62 mg/dL (<=0.30); CALCIUM 8.7 mg/dL (8.4-10.1); CREATININE 1.5 mg/dL (0.6-1.0); EST CRCL DRUG DOSING (CG) 31.74 mL/min; POTASSIUM,K 4.3 mEq/L (3.5-5.0); PROTEIN TOTAL,TP 6.3 g/dL (6.4-8.2)
== END 2022-10-07 16:33 | disposition home or self-care (01) ==
LOC: CC.ED 14:30
DX: R18.8 Other ascites (principal); E78.00 Pure hypercholesterolemia, unspecified; I10 Essential (primary) hypertension; E11.9 Type 2 diabetes mellitus without complications; E03.9 Hypothyroidism, unspecified; J45.909 Unspecified asthma, uncomplicated; Z88.1 Allergy status to other antibiotic agents; Z88.8 Allergy status to other drugs, medicaments and biological substances; Z88.5 Allergy status to narcotic agent; Z79.4 Long term (current) use of insulin; Z79.82 Long term (current) use of aspirin
CPT/HCPCS: 36415; 76705; 80053; 85025; 86140; 99284

== ENCOUNTER 2022-11-05 11:29 | Emergency (ER) | payer MEDICARE, OTHER ==
[2022-11-05] MEDS ORDERED: Sodium Chloride 0.9% 1,000 ML IV ONE (12:01)
[2022-11-05] MEDS ORDERED: Morphine 2 MG/ML SYRINGE IM ONE (12:01)
[2022-11-05] MEDS ORDERED: metroNIDAZOLE/Normal Saline 500 MG in Premix Bag 1 BAG IV ONE (12:04)
[2022-11-05] MEDS ORDERED: Piperacillin/Tazobactam 4.5 GM in Sodium Chloride 0.9% 100 ML IV ONE (12:04)
[2022-11-05] MEDS ORDERED: LORazepam 2 MG/ML SDV IM ONE (12:15)
[2022-11-05] MEDS ORDERED: VANCOmycin 2 GM/400 ML 2 GM in Premix Bag 1 BAG IV ONE (13:15)
[2022-11-05] MEDS ORDERED: Norepinephrine 4 MG in Dextrose 5% in Water 246 ML IV SCH ×4 (13:15)
[2022-11-05] MEDS ORDERED: Calcium Gluconate 1 GM in Sodium Chloride 0.9% 100 ML IV ONE (13:18)
[2022-11-05] MEDS ORDERED: 50% Dextrose in Water 50 ML Syringe IVPUSH PRN (13:19)
[2022-11-05] MEDS ORDERED: Insulin Regular, Human 100 Units/ML 3 ML Vial SUBCUT ONE (13:19)
[2022-11-05] MEDS ORDERED: Glucagon,Human Recombinant 1 MG Vial IM PRN (13:19)
[2022-11-05] MEDS ORDERED: ALBUMIN HUMAN IV ONE (13:22)
[2022-11-05] MEDS ORDERED: fentaNYL 50 MCG/ML SDV IVPUSH ONE (13:23)
[2022-11-05] MEDS ORDERED: Lidocaine 1% 5 ML VIAL ONE (13:32)
[2022-11-05 14:10] LABS: APPEARANCE,URINE SLIGHTLY CLOUDY (CLEAR); BILIRUBIN,URINE SMALL (NEGATIVE); COLOR,URINE AMBER (YELLOW); GLUCOSE,URINE NEGATIVE (NEGATIVE); KETONES,URINE NEGATIVE (NEGATIVE); LEUKOCYTE ESTERASE,URINE TRACE (NEGATIVE); NITRITE,URINE POSITIVE (NEGATIVE); OCCULT BLOOD,URINE TRACE-INTACT (NEGATIVE); PROTEIN,URINE 30 mg/dL (NEGATIVE); UROBILINOGEN,URINE 0.2 EU/dL (0.2-1.0)
[2022-11-05 14:16] LABS: BACTERIA,URINE MODERATE /HPF (NOT SEEN); EPITHELIAL CELLS,URINE FEW /HPF (NOT SEEN); MUCUS,URINE MODERATE /HPF (NOT SEEN); WBC,URINE 50-75 /HPF (0-5)
[2022-11-05 15:03] VITALS: BP 115/70; PULSE 70
== END 2022-11-05 14:30 ==
LOC: CC.ED 11:29
DX: N30.01 Acute cystitis with hematuria (principal); N17.9 Acute kidney failure, unspecified; E87.6 Hypokalemia; N19 Unspecified kidney failure; R65.21 Severe sepsis with septic shock; E83.41 Hypermagnesemia; K76.7 Hepatorenal syndrome; I10 Essential (primary) hypertension; J45.909 Unspecified asthma, uncomplicated; M19.90 Unspecified osteoarthritis, unspecified site; E11.9 Type 2 diabetes mellitus without complications; E03.9 Hypothyroidism, unspecified; E78.00 Pure hypercholesterolemia, unspecified; Z88.8 Allergy status to other drugs, medicaments and biological substances; Z79.82 Long term (current) use of aspirin; Z79.899 Other long term (current) drug therapy
CPT/HCPCS: 36415; 36556; 51702; 71045; 71250; 74176; 81001; 82800; 83735; 83880; 87040; 87077; 87086; 87088; 87186; 93005; 96365; 96367; 96368; 96372; 96375; 99291-25; 99292; C1751; J0612; J1815-GY; J2060; J2270; J2543; J3010; J3370; J3490; J7030; J7060; P9047